=== PATIENT | male | born 1940 | race African-American/Black ===

== ENCOUNTER 2019-02-01 09:17 | Emergency (ER) | payer OTHER ==
[2019-02-01] MEDS ORDERED: cloNIDine HCl 0.1 MG TAB ONE (10:36)
[2019-02-01] MEDS ORDERED: MECLIZINE HCL 12.5 MG TAB ONE (10:36)
--- NOTE | 2019-02-01 12:59 | EDPHYS ---
Physician Documentation [facility] Name: Jonatan Benítez Age: 78 yrs Sex: Male : 1940 Arrival Date: 02/01/2019 Time: 09:21 Bed 8 Private MD: None, None ED Physician Kaushal Esteves HPI: 02/01 16:03 This 78 yrs old Black Male presents to ER via Ambulatory with complaints of Dizziness. kdr 16:03 The patient presents with dizziness, feeling off balance, vertigo. Onset: The kdr symptoms/episode began/occurred gradually, 5 day(s) ago. Context: occurred at home. Modifying factors: The symptoms are alleviated by holding head still, the symptoms are aggravated by movement of head, standing up, changing position. Associated signs and symptoms: Pertinent positives: ataxia, nausea, Pertinent negatives: blurred vision, chest pain, combativeness, confusion, diaphoresis, focal weakness, head injury, headache, near-syncope, numbness, palpitations, seizure, shortness of breath, syncope, tingling, vomiting. Severity of symptoms: At their worst the symptoms were very mild in the emergency department the symptoms have improved mildly. Patient's baseline: Neuro: alert and fully oriented, Motor: no deficits, Ambulation: walks without assistance, Speech: normal. The patient has not experienced similar symptoms in the past. The patient has not recently seen a physician. Historical: - Allergies: 09:33 No Known Allergies; hb - Home Meds: 09:33 None [Active]; hb - PMHx: 09:33 None; hb - PSHx: 09:33 Back; Hernia Repair; hb - Immunization history:: Adult Immunizations up to date. - Social history:: Smoking status: Patient uses tobacco products, Pipe. - Ebola Screening: : No symptoms or risks identified at this time. ROS: 16:03 Constitutional: Negative for fever, chills, and weight loss, Eyes: Negative for injury, kdr pain, redness, and discharge, ENT: Negative for injury, pain, and discharge, Neck: Negative for injury, pain, and swelling, Cardiovascular: Negative for chest pain, palpitations, and edema, Respiratory: Negative for shortness of breath, cough, wheezing, and pleuritic chest pain, Abdomen/GI: Negative for abdominal pain, nausea, vomiting, diarrhea, and constipation, Back: Negative for injury and pain, : Negative for injury, bleeding, discharge, and swelling, MS/Extremity: Negative for injury and deformity, Skin: Negative for injury, rash, and discoloration, Psych: Negative for depression, anxiety, suicide ideation, homicidal ideation, and hallucinations, Allergy/Immunology: Negative for hives, rash, and allergies, Endocrine: Negative for neck swelling, polydipsia, polyuria, polyphagia, and marked weight changes, Hematologic/Lymphatic: Negative for swollen nodes, abnormal bleeding, and unusual bruising. 16:03 Neuro: Positive for dizziness, Negative for altered mental status, gait disturbance, headache, hearing loss, loss of consciousness, numbness, seizure activity, speech changes, syncope, near syncope, tingling, tinnitus, visual changes, weakness, acute changes. Exam: 16:03 Constitutional: This is a well developed, well nourished patient who is awake, alert, kdr and in no acute distress. Head/Face: Normocephalic, atraumatic. Eyes: Pupils equal round and reactive to light, extra-ocular motions intact. Lids and lashes normal. Conjunctiva and sclera are non-icteric and not injected. Cornea within normal limits. Periorbital areas with no swelling, redness, or edema. Neck: Trachea midline, no thyromegaly or masses palpated, and no cervical lymphadenopathy. Supple, full range of motion without nuchal rigidity, or vertebral point tenderness. No Meningismus. Chest/axilla: Normal chest wall appearance and motion. Nontender with no deformity. No lesions are appreciated. Cardiovascular: Regular rate and rhythm with a normal S1 and S2. No gallops, murmurs, or rubs. Normal PMI, no JVD. No pulse deficits. Respiratory: Lungs have equal breath sounds bilaterally, clear to auscultation and percussion. No rales, rhonchi or wheezes noted. No increased work of breathing, no retractions or nasal flaring. Abdomen/GI: Soft, non-tender, with normal bowel sounds. No distension or tympany. No guarding or rebound. No evidence of tenderness throughout. Back: No spinal tenderness. No costovertebral tenderness. Full range of motion. Skin: Warm, dry with normal turgor. Normal color with no rashes, no lesions, and no evidence of cellulitis. MS/ Extremity: Pulses equal, no cyanosis. Neurovascular intact. Full, normal range of motion. Neuro: Awake and alert, GCS 15, oriented to person, place, time, and situation. Cranial nerves II-XII grossly intact. Motor strength 5/5 in all extremities. Sensory grossly intact. Cerebellar exam normal. Normal gait. Psych: Awake, alert, with orientation to person, place and time. Behavior, mood, and affect are within normal limits. Vital Signs: 09:31 BP 201 / 99; Pulse 57; Resp 16; Temp 97.9; Pulse Ox 100% on R/A; Weight 72.57 kg; hb Height 5 ft. 4 in. (162.56 cm); Pain 5/10; 10:31 BP 191 / 87 Supine; Pulse 53; Resp 19; Pulse Ox 100% on R/A; tw2 10:31 BP 181 / 88 Sitting; Pulse 51; tw2 10:31 BP 182 / 90 Standing; Pulse 56; tw2 11:19 BP 167 / 82; Pulse 51; Resp 17; Pulse Ox 100% on R/A; tw2 12:36 BP 146 / 76; Pulse 53; Resp 17; Pulse Ox 99% on R/A; tw2 13:04 BP 136 / 78; Pulse 53; Resp 17; Pulse Ox 99% on R/A; tw2 09:31 Body Mass Index 27.46 (72.57 kg, 162.56 cm) hb 10:31 pt reports "lightheaded for just a bit but it goes away" with each position change tw2 MDM: 12:58 Patient medically screened. kdr 16:03 Data reviewed: vital signs, nurses notes. Counseling: I had a detailed discussion with kdr the patient and/or guardian regarding: the historical points, exam findings, and any diagnostic results supporting the discharge/admit diagnosis, the need for outpatient follow up. ED course: The patient had good improvement with interventions given. He declined further evaluation . 02/01 10:18 Order name: Orthostatic Blood Pressure; Complete Time: : kdr Administered Medications: 10:30 Drug: cloNIDine 0.1 mg Route: PO; tw2 10:31 Drug: Meclizine 25 mg Route: PO; tw2 Disposition: 02/01/19 12:58 Discharged to Home. Impression: Dizziness and giddiness, Benign paroxysmal vertigo, bilateral, Benign paroxysmal vertigo, unspecified ear. - Condition is Stable. - Discharge Instructions: Vertigo, [id number], Dizziness, [id number]. - Prescriptions for Meclizine 25 mg Oral Tablet - take 1 tablet by ORAL route every 8 hours As needed; 30 tablet. - Medication Reconciliation Form, Thank You Letter form. - Follow up: Private Physician; When: 2 - 3 days; Reason: If symptoms return, Further diagnostic work-up, Recheck today's complaints, Continuance of care, Re-evaluation by your physician. Follow up: Azam Mclaughlin MD; When: 2 - 3 days; Reason: If symptoms return, Further diagnostic work-up, Recheck today's complaints, Continuance of care, Re-evaluation by your physician. - Problem is new. - Symptoms have improved. Signatures: Kaushal Esteves MD MD [facility] Jyoti Delatorre RN RN Wen Walsh RN RN tw2 Corrections: (The following items were deleted from the chart) 09:33 09:32 Social history: Smoking status: Patient/guardian denies using tobacco, [facility] 13:05 12:58 02/01/2019 12:58 Discharged to Home. Impression: Dizziness and giddiness; Benign tw2 paroxysmal vertigo, bilateral; Benign paroxysmal vertigo, unspecified ear. Condition is Stable. Forms are Medication Reconciliation Form, Thank You Letter, Antibiotic Education, Prescription Opioid Use. Follow up: Private Physician; When: 2 - 3 days; Reason: If symptoms return, Further diagnostic work-up, Recheck today's complaints, Continuance of care, Re-evaluation by your physician. Follow up: Azam Mclaughlin; When: 2 - 3 days; Reason: If symptoms return, Further diagnostic work-up, Recheck today's complaints, Continuance of care, Re-evaluation by your physician. Problem is new. Symptoms have improved. kdr
--- NOTE | 2019-02-01 12:59 | ER ---
Nurse's Notes [facility] Name: Jonatan Benítez Age: 78 yrs Sex: Male : 1940 Arrival Date: 02/01/2019 Time: 09:21 Bed 8 Private MD: None, None Diagnosis: Dizziness and giddiness;Benign paroxysmal vertigo, bilateral;Benign paroxysmal vertigo, unspecified ear Presentation: 02/01 09:29 Presenting complaint: Sinus congestion x 1 week, dizziness when side lying on right hb side x 5 days, dizziness when standing today. Also reports nonproductive cough and subjective fever x 5 days. Transition of care: patient was not received from another setting of care. Onset of symptoms was January 28, 2019. Risk Assessment: Do you want to hurt yourself or someone else? Patient reports no desire to harm self or others. Care prior to arrival: None. 09:29 Method Of Arrival: Ambulatory hb 09:29 Acuity: BRANDY 3 hb 09:36 Initial Sepsis Screen: Does the patient meet any 2 criteria? No. Patient's initial tw2 sepsis screen is negative. Does the patient have a suspected source of infection? No. Patient's initial sepsis screen is negative. Historical: - Allergies: 09:33 No Known Allergies; hb - Home Meds: 09:33 None [Active]; hb - PMHx: 09:33 None; hb - PSHx: 09:33 Back; Hernia Repair; hb - Immunization history:: Adult Immunizations up to date. - Social history:: Smoking status: Patient uses tobacco products, Pipe. - Ebola Screening: : No symptoms or risks identified at this time. Screenin:36 Abuse screen: Denies threats or abuse. Nutritional screening: No deficits noted. tw2 Tuberculosis screening: No symptoms or risk factors identified. Fall Risk Secondary diagnosis (15 points) impaired mobility. Assessment: 09:40 General: Appears in no apparent distress. well groomed, Behavior is calm, cooperative, tw2 appropriate for age. Pain: Denies pain. Neuro: Level of Consciousness is awake, alert, obeys commands, Oriented to person, place, time, situation. Neuro: Reports dizziness. Cardiovascular: Heart tones S1 S2. Cardiovascular: Capillary refill < 3 seconds Patient's skin is warm and dry. Respiratory: Airway is patent Respiratory effort is even, unlabored, Respiratory pattern is regular, symmetrical, Breath sounds are clear bilaterally. GI: No signs and/or symptoms were reported involving the gastrointestinal system. Abdomen is flat. : No signs and/or symptoms were reported regarding the genitourinary system. EENT: No signs and/or symptoms were reported regarding the EENT system. Derm: No signs and/or symptoms reported regarding the dermatologic system. Musculoskeletal: Range of motion: intact in all extremities. 10:54 Reassessment: Patient appears in no apparent distress at this time. No changes from tw2 previously documented assessment. Patient and/or family updated on plan of care and expected duration. Pain level reassessed. Patient is alert, oriented x 3, equal unlabored respirations, skin warm/dry/pink. 12:05 Reassessment: Patient appears in no apparent distress at this time. Patient and/or tw2 family updated on plan of care and expected duration. Pain level reassessed. Patient is alert, oriented x 3, equal unlabored respirations, skin warm/dry/pink. Patient states feeling better. Patient states symptoms have improved. 13:04 Reassessment: Patient appears in no apparent distress at this time. Patient and/or tw2 family updated on plan of care and expected duration. Pain level reassessed. Patient is alert, oriented x 3, equal unlabored respirations, skin warm/dry/pink. Patient states feeling better. Patient states symptoms have improved. Vital Signs: 09:31 BP 201 / 99; Pulse 57; Resp 16; Temp 97.9; Pulse Ox 100% on R/A; Weight 72.57 kg; hb Height 5 ft. 4 in. (162.56 cm); Pain 5/10; 10:31 BP 191 / 87 Supine; Pulse 53; Resp 19; Pulse Ox 100% on R/A; tw2 10:31 BP 181 / 88 Sitting; Pulse 51; tw2 10:31 BP 182 / 90 Standing; Pulse 56; tw2 11:19 BP 167 / 82; Pulse 51; Resp 17; Pulse Ox 100% on R/A; tw2 12:36 BP 146 / 76; Pulse 53; Resp 17; Pulse Ox 99% on R/A; tw2 13:04 BP 136 / 78; Pulse 53; Resp 17; Pulse Ox 99% on R/A; tw2 09:31 Body Mass Index 27.46 (72.57 kg, 162.56 cm) hb 10:31 pt reports "lightheaded for just a bit but it goes away" with each position change tw2 ED Course: 09:21 Patient arrived in ED. mr 09:21 None, None is Private Physician. mr 09:31 Triage completed. hb 09:33 Arm band placed on. hb 09:35 Wen Walsh, RN is Primary Nurse. tw2 09:36 Bed in low position. Call light in reach. Adult w/ patient. computer hardware designer on. Pulse tw2 ox on. NIBP on. 09:59 Kaushal Esteves MD is Attending Physician. kdr 12:56 Azam Mclaughlin MD is Referral Physician. kdr 13:04 No provider procedures requiring assistance completed. Patient did not have IV access tw2 during this emergency room visit. Administered Medications: 10:30 Drug: cloNIDine 0.1 mg Route: PO; tw2 10:31 Drug: Meclizine 25 mg Route: PO; tw2 Outcome: 12:58 Discharge ordered by . kdr 13:04 Discharged to home ambulatory, with family. tw2 13:04 Condition: stable 13:04 Discharge instructions given to patient, family, Instructed on discharge instructions, follow up and referral plans. medication usage, Demonstrated understanding of instructions, follow-up care, medications, Prescriptions given X 1. 13:05 Patient left the ED. tw2 Signatures: Kaushal Esteves MD MD [facility] mr DelatorreJyoti RN RN Wen Walsh, JOHN RN tw2 Corrections: (The following items were deleted from the chart) 09:33 09:32 Social history: Smoking status: Patient/guardian denies using tobacco, hb hb
[2019-02-01] MEDS ORDERED: MORPHINE 2 MG/ML SYR ONE (13:43)
[2019-02-01] MEDS ORDERED: ONDANSETRON 4 MG/2 ML VIAL ONE (13:43)
== END 2019-02-01 13:05 | disposition home or self-care (01) ==
LOC: ER 09:17
DX: H81.13 Benign paroxysmal vertigo, bilateral (principal); Z72.0 Tobacco use
CPT/HCPCS: 99284; J2270; J2405

== ENCOUNTER 2020-11-19 08:59 | Emergency (ER) | payer OTHER ==
--- NOTE | 2020-11-19 11:14 | ER ---
Nurse's Notes [facility] Name: Jonatan Benítez Age: 80 yrs Sex: Male : 1940 Arrival Date: 11/19/2020 Time: 09:02 Bed 15 Private MD: Diagnosis: Low back pain Presentation: 11/19 09:15 Chief complaint: Patient states: R hip pain that radiates down R leg x 6 days. 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 Coronavirus screen: Client denies travel out of the [place] in the last 14 days. Ebola Screen: Patient denies exposure to infectious person. Patient denies travel to an Ebola-affected area in the 21 days before illness onset. Initial Sepsis Screen: Does the patient meet any 2 criteria? No. Patient's initial sepsis screen is negative. Does the patient have a suspected source of infection? No. Patient's initial sepsis screen is negative. Risk Assessment: Do you want to hurt yourself or someone else? Patient reports no desire to harm self or others. Onset of symptoms was November 13, 2020. 09:15 Method Of Arrival: Wheelchair ss 09:15 Acuity: BRANDY 4 ss Historical: - Allergies: 09:19 No Known Allergies; ss - Home Meds: 09:19 None [Active]; ss - PMHx: 09:19 None; ss - PSHx: 09:19 Back; Hernia repair; ss - Immunization history:: Adult Immunizations up to date. - Social history:: Smoking status: Patient reports the use of cigarette tobacco products, "pipe". Screenin:39 Abuse screen: Denies threats or abuse. Denies injuries from another. Nutritional jl7 screening: No deficits noted. Tuberculosis screening: No symptoms or risk factors identified. Fall Risk Gait- Weak (10 pts.). Total Malloy Fall Scale indicates No Risk (0-24 pts). Assessment: 09:39 General: Appears in no apparent distress. uncomfortable, Behavior is calm, cooperative, jl7 appropriate for age. Pain: Complains of pain in right low back Pain radiates to right hamstring, posterior aspect of right knee and right calf Pain currently is 0 out of 10 on a pain scale. at worst was 6 out of 10 on a pain scale. Quality of pain is described as shooting, Pain began 2-3 days ago. Is intermittent. Neuro: Level of Consciousness is awake, alert, obeys commands, Oriented to person, place, time, situation, Moves all extremities. Full function Gait is unsteady, Speech is normal. Cardiovascular: Patient's skin is warm and dry. Respiratory: Airway is patent Respiratory effort is even, unlabored, Respiratory pattern is regular, symmetrical. Derm: Skin is pink, warm \\T\\ dry. Musculoskeletal: Range of motion: limited in right hip. 09:44 Reassessment: ERP at bedside assessing pt. jl7 10:35 Reassessment: Patient appears in no apparent distress at this time. No changes from jl7 previously documented assessment. Patient and/or family updated on plan of care and expected duration. Pain level reassessed. Patient is alert, oriented x 3, equal unlabored respirations, skin warm/dry/pink. Awaiting X-ray. Vital Signs: 09:15 BP 148 / 86; Pulse 74; Resp 16; Temp 98.0(O); Pulse Ox 98% on R/A; Height 5 ft. 3 in. ss (160.02 cm); Pain 6/10; ED Course: 09:02 Patient arrived in ED. ds1 09:07 Kobe Sheridan PA is PHCP. jr8 09:07 Pedro Mckee MD is Attending Physician. jr8 09:17 Melecio Draper, JOHN is Primary Nurse. jl7 09:19 Triage completed. ss 09:19 Arm band placed on right wrist. ss 09:39 Patient has correct armband on for positive identification. Placed in gown. Bed in low jl7 position. Call light in reach. Side rails up X 1. 11:02 XRAY Lumbar Spine (3 Views) In Process Unspecified. EDMS Administered Medications: No medications were administered Outcome: 11:12 Discharge ordered by . jr8 11:30 Patient left the ED. jl7 Signatures: Dispatcher [employer] EDMS Ugarte, Marita ds1 Carin Gamez, JOHN RN Kobe Medina PA PA jr8 Melecio Draper RN RN jl7
--- NOTE | 2020-11-19 11:14 | EDPHYS ---
Physician Documentation [facility] Name: Jonatan Benítez Age: 80 yrs Sex: Male : 1940 Arrival Date: 11/19/2020 Time: 09:02 Bed 15 Private MD: ED Physician Pedro Mckee HPI: 11/19 10:47 This 80 yrs old Black Male presents to ER via Wheelchair with complaints of Hip Pain, jr8 Back Pain. 10:47 The patient or guardian reports decreased range of motion, pain. that occurred at home, jr8 at work, sustained from Working on land There is no obvious deformity, The patient is able to self ambulate. The patient is able to bear partial body weight. The patient's discomfort radiates to the right leg. The complaints affect the right leg. 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 He reports not lifting anything too heavy but his R hip started hurting on Monday with an increase in pain Monday and Monday with decreased ROM. He denies incontinence, numbness, or tingling. . Historical: - Allergies: 09:19 No Known Allergies; ss - Home Meds: 09:19 None [Active]; ss - PMHx: 09:19 None; ss - PSHx: 09:19 Back; Hernia repair; ss - Immunization history:: Adult Immunizations up to date. - Social history:: Smoking status: Patient reports the use of cigarette tobacco products, "pipe". ROS: 10:50 Cardiovascular: Negative for chest pain, palpitations, and edema, Respiratory: Negative jr8 for shortness of breath, cough, wheezing, and pleuritic chest pain, Abdomen/GI: Negative for abdominal pain, nausea, vomiting, diarrhea, and constipation, MS/Extremity: Negative for injury and deformity, Neuro: Negative for headache, weakness, numbness, tingling, and seizure. 10:50 Back: Positive for decreased range of motion, pain with movement, radiated pain, of the R lateral iliac crest that radiates to R hamstring. 10:50 MS/extremity: Positive for decreased range of motion, pain, tenderness, Negative for injury or acute deformity, erythema, paresthesias. Exam: 10:55 Chest/axilla: Normal chest wall appearance and motion. Nontender with no deformity. jr8 No lesions are appreciated. Cardiovascular: Regular rate and rhythm with a normal S1 and S2. No gallops, murmurs, or rubs. Normal PMI, no JVD. No pulse deficits. Respiratory: Lungs have equal breath sounds bilaterally, clear to auscultation and percussion. No rales, rhonchi or wheezes noted. No increased work of breathing, no retractions or nasal flaring. Abdomen/GI: Soft, non-tender, with normal bowel sounds. No distension or tympany. No guarding or rebound. No evidence of tenderness throughout. 10:55 Back: ROM is painful, with extension, decreased, with extension, CVA tenderness, is absent, vertebral tenderness, is not appreciated, Straight leg raises: right lower extremity does not illicit pain, left lower extremity does not illicit pain, Passive, Leg raises against resistance is painful to R leg. Vital Signs: 09:15 BP 148 / 86; Pulse 74; Resp 16; Temp 98.0(O); Pulse Ox 98% on R/A; Height 5 ft. 3 in. ss (160.02 cm); Pain 6/10; MDM: 09:07 Patient medically screened. jr8 10:57 Data reviewed: vital signs, nurses notes, radiologic studies. Data interpreted: Cardiac jr8 monitor: rate is 74 beats/min, rhythm is regular, Pulse oximetry: on room air is 98 %. Interpretation: normal. 11:12 Counseling: I had a detailed discussion with the patient and/or guardian regarding: the jr8 historical points, exam findings, and any diagnostic results supporting the discharge/admit diagnosis, radiology results, the need for outpatient follow up, a family practitioner, to return to the emergency department if symptoms worsen or persist or if there are any questions or concerns that arise at home. 11/19 09:56 Order name: XRAY Lumbar Spine (3 Views); Complete Time: 14:40 jr8 Administered Medications: No medications were administered Disposition: 18:27 Co-signature as Attending Physician, Pedro Mckee MD I agree with the assessment and 4 plan of care. Disposition: 11/19/20 11:12 Discharged to Home. Impression: Low back pain. - Condition is Stable. - Discharge Instructions: Back Pain, Adult, Back Exercises, [id number], Heat Therapy. - Prescriptions for meloxicam 7.5 mg Oral tablet - take 1 tablet by ORAL route once daily As needed; 20 tablet. Robaxin 500 mg Oral Tablet - take 2 tablet by ORAL route every 6 hours As needed; 40 tablet. - Medication Reconciliation Form, Thank You Letter, Antibiotic Education, Prescription Opioid Use form. - Follow up: Private Physician; When: 5 - 6 days; Reason: Recheck today's complaints, Continuance of care, Re-evaluation by your physician. - Problem is new. - Symptoms have improved. Signatures: Dispatcher [employer] EDMS Carin Gamez RN RN Kobe Medina PA PA jr8 Melecio Draper RN RN jl7 Pedro Mckee MD MD tw4 Corrections: (The following items were deleted from the chart) 11:30 11:12 11/19/2020 11:12 Discharged to Home. Impression: Low back pain. Condition is jl7 Stable. Forms are Medication Reconciliation Form, Thank You Letter, Antibiotic Education, Prescription Opioid Use. Follow up: Private Physician; When: 5 - 6 days; Reason: Recheck today's complaints, Continuance of care, Re-evaluation by your physician. Problem is new. Symptoms have improved. jr8
--- NOTE | 2020-11-19 11:30 | RAD REPORT ---
EXAM DESCRIPTION: RAD - Lumbar Spine 3 Views - 11/19/2020 11:06 am CLINICAL HISTORY: PAIN Radiculopathy COMPARISON: No comparisons FINDINGS: Vertebral body heights appear maintained. No compression fracture noted. Disc thinning is present with small endplate osteophytes throughout the lumbar spine, greatest at L4-5. Minimal serge listhesis of L3 on 4 is present. 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
[2020-11-19 11:41] VITALS: BP 148/86; TEMP 98; O2SAT 98
== END 2020-11-19 11:30 | disposition home or self-care (01) ==
LOC: ER 08:59
DX: M54.5 Low back pain (principal); M25.551 Pain in right hip; F17.290 Nicotine dependence, other tobacco product, uncomplicated
CPT/HCPCS: 72100; 99282